=== PATIENT | female | born 1995 | race African-American/Black ===

== ENCOUNTER 2017-10-30 16:29 | Outpatient (CLI) | payer MEDICAID ==
[2017-10-30 17:52] VITALS: BP 118/59
[2017-10-30 18:39] LABS: ABSOLUTE EOSINOPHILS # (AUTO) 0.1 10^3/uL (0.0-0.6); ABSOLUTE LYMPHOCYTES (AUTO) 2.5 10^3/uL (0.5-4.7); ABSOLUTE MONOCYTES (AUTO) 1.2 10^3/uL (0.1-1.4); ABSOLUTE NEUT (AUTO) 8.2 10^3/uL (1.7-8.2); BASOPHILS % (AUTO) 0.3 % (0-2); HEMATOCRIT 28.1 % (36.0-47.0); HEMOGLOBIN 9.2 g/dL (12.0-15.5); LYMPHOCYTES % (AUTO) 20.9 % (13-45); MEAN CORPUSCULAR HEMOGLOBIN 27.7 pg (27.0-33.4); MEAN CORPUSCULAR HGB CONC 32.9 g/dL (32.0-36.0); MEAN CORPUSCULAR VOLUME 84 fl (80-97); MONOCYTES % (AUTO) 9.7 % (3-13); PLATELET COUNT 273 10^3/uL (150-450); RED BLOOD COUNT 3.34 10^6/uL (3.72-5.28); RED CELL DISTRIBUTION WIDTH 15.9 % (11.5-14.0); SEGMENTED NEUTROPHILS % (AUTO) 68.1 % (42-78); TOTAL CELLS COUNTED % (AUTO) 100 %; WHITE BLOOD COUNT 12.1 10^3/uL (4.0-10.5)
[2017-10-30 19:30] LABS: RUBELLA INTERPRETATION POSITIVE
--- NOTE | 2017-10-30 20:08 | RADIOLOGY REPORT (SQ) ---
EXAM DESCRIPTION: U/S OB LIMITED COMPLETED DATE/TIME: 10/30/2017 7:57 pm REASON FOR STUDY: need EGA, presentation, ISSA/SDP, unknown ega COMPARISON: None. TECHNIQUE: Limited transabdominal grayscale ultrasound for evaluation of specific requested obstetri terry parameters. LIMITATIONS: None. FINDINGS: ISSA: 10.6 cm. FHR: 139 beats per minute. PRESENTATION: Cephalic. OTHER: ESTIMATE GESTATIONAL AGE OF 33 WEEKS 0 DAYS WITH MAGI OF 12/18/2017. IMPRESSION: LIMITED OBSTETRICAL ULTRASOUND WITH MEASURED PARAMETERS DELINEATED ABOVE. Trimester of : Third trimester - 28 weeks to delivery. TECHNICAL DOCUMENTATION: JOB ID: [id number] [employer]- All Rights Reserved
[2017-10-30 20:21] LABS: CHLAM PCR DETECTED (NOT DETECT); GON PCR NOT DETECTED (NOT DETECT)
[2017-10-30 21:13] LABS: APPEARANCE,URINE CLEAR; BILIRUBIN,URINE NEGATIVE (NEGATIVE); COLOR,URINE YELLOW; GLUCOSE, URINE NEGATIVE (NEGATIVE); KETONES,URINE NEGATIVE (NEGATIVE); LEUKOCYTE ESTERASE,URINE TRACE (NEGATIVE); NITRITE,URINE NEGATIVE (NEGATIVE); PROTEIN,URINE NEGATIVE (NEGATIVE); URINE SPECIFIC GRAVITY 1.008; UROBILINOGEN,URINE NEGATIVE mg/dL (<2.0)
[2017-10-30 21:28] LABS: URINE AMPHETAMINES SCREEN NEGATIVE; URINE BARBITURATES SCREEN NEGATIVE; URINE BENZODIAZEPINES SCREEN NEGATIVE; URINE COCAINE SCREEN NEGATIVE; URINE METHADONE SCREEN NEGATIVE; URINE PHENCYCLIDINE SCREEN NEGATIVE
[2017-10-30] MEDS ORDERED: AZITHROMYCIN 1 GM SUSP PACKET PO ONE (21:30)
[2017-10-30] MEDS ORDERED: METRONIDAZOLE 500 MG TABLET PO ONE (21:30)
[2017-10-30 21:31] LABS: URINE MARIJUANA (THC) SCREEN UNCONFIRMED POSITIVE
[2017-11-01 08:40] LABS: HEPATITIS C VIRUS AB <0.1 s/co ratio (0.0-0.9)
[2017-11-01 10:32] LABS: HEPATITS B SURFACE ANTIGEN Negative (Negative)
== END 2017-10-30 21:37 | disposition home or self-care (01) ==
LOC: EDSTATUS 17:40 → LC 18:21
PROVIDERS: ATTEND Student in an Organized Health Care Education/Training Program
PROC: 4A1HXCZ Monitoring of Products of Conception, Cardiac Rate, External Approach (ICD-10-PCS; principal; 2017-10-30)
DX: O47.03 False labor before 37 completed weeks of gestation, third trimester (principal); O26.893 Other specified pregnancy related conditions, third trimester; R10.2 Pelvic and perineal pain; Z3A.33 33 weeks gestation of pregnancy
CPT/HCPCS: 59025; 86900; 86901; 36415; 86850; 85025; 81025; 87077; 86762; 86592; 81001; 87081; 87340; 86701; 80307; 87491; 87591; 86803; 86804; 76815; G0480 ×2; Q0144; J3490

== ENCOUNTER 2017-11-26 12:26 | Outpatient (CLI) | payer MEDICAID ==
--- NOTE | 2017-11-26 12:41 | Non Stress Test Report ---
Non Stress Test Datetime Report Generated by CPN: 11/26/2017 12:41 DEMOGRAPHIC Test Number: 1 EGA NST: 33.6 INDICATION Indication for Study: Ordered by Provider MONITORING Time on Monitor: 10/30/2017 18:23 Time off Monitor: 10/30/2017 19:03 NST Duration: 40 NST INTERVENTIONS NST Interventions: PO Hydration; Reposition Patient Physician Notified NST: Dr Cuadra BABY A: [id number] BABY A Movement : Present Contraction Frequency : x1 with irritability FHR Baseline : 135 Accelerations : 15X15 Decelerations : None Variability : Moderate 6-25bpm NST Review: Meets Criteria for Reactive NST NST Review and Verified By : Cinda Cantrell RN NST Results: Reactive NST REPORT Report Trigger: Send Report
[2017-11-26 13:24] LABS: APPEARANCE,URINE CLOUDY; BILIRUBIN,URINE NEGATIVE (NEGATIVE); COLOR,URINE YELLOW; GLUCOSE, URINE NEGATIVE (NEGATIVE); KETONES,URINE NEGATIVE (NEGATIVE); LEUKOCYTE ESTERASE,URINE MODERATE (NEGATIVE); NITRITE,URINE NEGATIVE (NEGATIVE); PROTEIN,URINE 100 mg/dL (NEGATIVE); URINE SPECIFIC GRAVITY 1.014
[2017-11-26 13:40] LABS: URINE AMPHETAMINES SCREEN NEGATIVE; URINE BARBITURATES SCREEN NEGATIVE; URINE BENZODIAZEPINES SCREEN NEGATIVE; URINE METHADONE SCREEN NEGATIVE; URINE PHENCYCLIDINE SCREEN NEGATIVE
[2017-11-26 13:45] LABS: URINE COCAINE SCREEN UNCONFIRMED POSITIVE; URINE MARIJUANA (THC) SCREEN UNCONFIRMED POSITIVE
--- NOTE | 2017-11-26 14:04 | Non Stress Test Report ---
Non Stress Test Datetime Report Generated by CPN: 11/26/2017 14:03 DEMOGRAPHIC Test Number: 2 EGA NST: 37.5 INDICATION Indication for Study: Other MONITORING Monitor Explained: Monitor Explained; Test Explained; Patient Verbalized Understanding Time on Monitor: 11/26/2017 12:44 Time off Monitor: 11/26/2017 13:13 NST Duration: 29 NST INTERVENTIONS NST Interventions: None Physician Notified NST: H. Reggie CNM BABY A Movement : Present Contraction Frequency : Occ FHR Baseline : 140 Accelerations : 15X15 Decelerations : None Variability : Moderate 6-25bpm NST Review: Meets Criteria for Reactive NST NST Review and Verified By : Tawny March RN NST Results: Reactive NST REPORT Report Trigger: Send Report
== END 2017-11-26 13:47 | disposition home or self-care (01) ==
LOC: LC 12:26
PROVIDERS: ATTEND Obstetrics & Gynecology
PROC: 4A1HXCZ Monitoring of Products of Conception, Cardiac Rate, External Approach (ICD-10-PCS; principal; 2017-11-26)
DX: K52.9 Noninfective gastroenteritis and colitis, unspecified (principal); O99.613 Diseases of the digestive system complicating pregnancy, third trimester; Z3A.37 37 weeks gestation of pregnancy
CPT/HCPCS: 59025; 81005; 80307; 80353; G0480; 36415

== ENCOUNTER 2017-12-07 08:20 | Outpatient (CLI) | payer MEDICAID ==
[2017-12-07 08:59] LABS: APPEARANCE,URINE CLOUDY; BILIRUBIN,URINE NEGATIVE (NEGATIVE); COLOR,URINE YELLOW; GLUCOSE, URINE NEGATIVE (NEGATIVE); KETONES,URINE NEGATIVE (NEGATIVE); LEUKOCYTE ESTERASE,URINE LARGE (NEGATIVE); NITRITE,URINE NEGATIVE (NEGATIVE); PROTEIN,URINE 30 mg/dL (NEGATIVE); UROBILINOGEN,URINE NEGATIVE mg/dL (<2.0)
[2017-12-07 09:17] LABS: URINE AMPHETAMINES SCREEN NEGATIVE; URINE BARBITURATES SCREEN NEGATIVE; URINE BENZODIAZEPINES SCREEN NEGATIVE; URINE COCAINE SCREEN NEGATIVE; URINE MARIJUANA (THC) SCREEN NEGATIVE; URINE METHADONE SCREEN NEGATIVE; URINE PHENCYCLIDINE SCREEN NEGATIVE
--- NOTE | 2017-12-07 09:25 | Non Stress Test Report ---
Non Stress Test Datetime Report Generated by CPN: 12/07/2017 09:25 DEMOGRAPHIC EGA NST: 39.2 INDICATION Indication for Study: Ordered by Provider MONITORING Monitor Explained: Monitor Explained; Test Explained; Patient Verbalized Understanding Time on Monitor: 12/07/2017 08:36 Time off Monitor: 12/07/2017 09:24 NST Duration: 48 NST INTERVENTIONS NST Interventions: None Physician Notified NST: Dr Cuadra BABY A: [id number] BABY A Movement : Present Contraction Frequency : irregular FHR Baseline : 135 Accelerations : 15X15 Decelerations : None Variability : Moderate 6-25bpm NST Review: Meets Criteria for Reactive NST NST Review and Verified By : Camelia Michael RN NST Results: Reactive NST REPORT Report Trigger: Send Report
== END 2017-12-07 09:35 | disposition home or self-care (01) ==
LOC: LC 08:20
PROVIDERS: ATTEND Student in an Organized Health Care Education/Training Program
PROC: 4A1HXCZ Monitoring of Products of Conception, Cardiac Rate, External Approach (ICD-10-PCS; principal; 2017-12-07)
DX: O47.1 False labor at or after 37 completed weeks of gestation (principal); Z3A.39 39 weeks gestation of pregnancy
CPT/HCPCS: 59025; 80307; 81005

== ENCOUNTER 2017-12-18 05:51 | Inpatient (IN) | payer MEDICAID ==
[2017-12-18] MEDS ORDERED: RINGERS SOLUTION,LACTATED 1,000 ML IV PRN (06:09)
[2017-12-18] MEDS ORDERED: PENICILLIN G POTASSIUM 5,000,000 UNIT in DEXTROSE 5%-WATER 100 ML IV ONE (06:09)
[2017-12-18] MEDS ORDERED: RINGERS SOLUTION,LACTATED 300 ML IV ONE (06:09)
[2017-12-18] MEDS ORDERED: OXYTOCIN/NORMAL SALINE 20 UNIT/1,000 ML RTUINJ IV PRN (06:09)
[2017-12-18] MEDS ORDERED: PENICILLIN G-K 5 MILLION UNIT VIAL ONE ×2 (06:36→11:35)
[2017-12-18] MEDS ORDERED: OXYTOCIN/NORMAL SALINE 0 UNIT/0 ML RTUINJ ONE (06:36)
[2017-12-18 06:37] LABS: APPEARANCE,URINE CLEAR; BILIRUBIN,URINE NEGATIVE (NEGATIVE); COLOR,URINE STRAW; GLUCOSE, URINE NEGATIVE (NEGATIVE); KETONES,URINE NEGATIVE (NEGATIVE); URINE SPECIFIC GRAVITY 1.009
[2017-12-18 06:38] LABS: LEUKOCYTE ESTERASE,URINE LARGE (NEGATIVE); NITRITE,URINE NEGATIVE (NEGATIVE); PROTEIN,URINE 30 mg/dL (NEGATIVE); UROBILINOGEN,URINE NEGATIVE mg/dL (<2.0)
[2017-12-18 06:44] LABS: ABSOLUTE BASOPHILS # (AUTO) 0.1 10^3/uL (0.0-0.2); ABSOLUTE EOSINOPHILS # (AUTO) 0.1 10^3/uL (0.0-0.6); ABSOLUTE LYMPHOCYTES (AUTO) 2.8 10^3/uL (0.5-4.7); ABSOLUTE NEUT (AUTO) 5.1 10^3/uL (1.7-8.2); BASOPHILS % (AUTO) 0.6 % (0-2); HEMATOCRIT 23.8 % (36.0-47.0); LYMPHOCYTES % (AUTO) 31.4 % (13-45); MEAN CORPUSCULAR HEMOGLOBIN 25.5 pg (27.0-33.4); MEAN CORPUSCULAR HGB CONC 33.1 g/dL (32.0-36.0); MEAN CORPUSCULAR VOLUME 77 fl (80-97); MONOCYTES % (AUTO) 10.9 % (3-13); PLATELET COUNT 264 10^3/uL (150-450); RED BLOOD COUNT 3.09 10^6/uL (3.72-5.28); RED CELL DISTRIBUTION WIDTH 17.2 % (11.5-14.0); SEGMENTED NEUTROPHILS % (AUTO) 56.1 % (42-78); TOTAL CELLS COUNTED % (AUTO) 100 %
[2017-12-18 06:50] LABS: HEMOGLOBIN 7.9 g/dL (12.0-15.5)
[2017-12-18 07:06] LABS: URINE AMPHETAMINES SCREEN NEGATIVE; URINE BARBITURATES SCREEN NEGATIVE; URINE BENZODIAZEPINES SCREEN NEGATIVE; URINE COCAINE SCREEN NEGATIVE; URINE MARIJUANA (THC) SCREEN NEGATIVE; URINE METHADONE SCREEN NEGATIVE; URINE PHENCYCLIDINE SCREEN NEGATIVE
--- NOTE | 2017-12-18 08:49 | Admission Physical ---
Datetime Report Generated by CPN: 12/18/2017 08:49 CURRENT ADMISSION Hx Assessment: The History has been Reviewed and is Current Chief Complaint: Scheduled Induction of Labor Indication for Induction: Post Dates Admit Impression : Term, Intrauterine ; No Active Labor; Intact Membranes Admit Plan: Admit to Unit; Initiate Labor Induction Protocol ALLERGIES Medication Allergies: Yes Medication Allergies: codeine/MO/Generalized kenji (12/18/2017) Latex: No Latex Allergies Food Allergies: none Environmental Allergies: none OBSTETRICAL HISTORY EDC: 12/12/2017 00:00 : 2 Para: 1 Term: 1 : 0 SAB: 0 IAB: 0 Ectopic: 0 Livin Cesareans: 0 VBACs: 0 Multiple Births: 0 Gestational Diabetes: No Rh Sensitization: No Incompetent Cervix: No ADOLFO: No Infertility: No ART Treatment: No Uterine Anomaly: No IUGR: Yes Hx Previous C/S: No Macrosomia: No Hx Loss/Stillborn: No PIH: No Hx : No Placenta Previa/Abruption: No Depression/PP Depression: No PTL/PROM: No Post Hemorrhage: No Current Procedures: Ultrasound Obstetrical History Comments: G1: 40.3 , IUGR G2: Current, ? frontal bossing "lemon shaped" head noted on ultrasound patient did not see MFM, positive cocaine and thc this , IOL SEE RECORDS Alcohol: No Marijuana : Yes Marijuana Comments: Positive UDS on 11/26/17 Cocaine: Yes Cocaine Comments: Positive UDS on 11/26/17, confirmation requested Other Illicit Drugs: No Cigarettes: Former Smoker. [id number] MEDICAL HISTORY Diabetes: No Blood Transfusion: No Pulmonary Disease (Asthma, TB): Yes Breast Disease: No Hypertension: No Form Maker Plaster Surgery: No Heart Disease: No Hosp/Surgery: Yes Autoimmune Disorder: No Anesthetic Complications: No Kidney Disease: Yes Abnormal Pap Smear: No Neuro/Epilepsy: No Psychiatric Disorders: No Other Medical Diseases: No Hepatitis/Liver Disease: No Significant Family History: No Varicosities/Phlebitis: No Trauma/Violence : No Thyroid Dysfunction: No Medical History Comments: x 1, kidney biopsy @ 16 or 17 pt states that she kept having excessive protien in urine. No problems since. 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 bronchitis x3 pt states that she has nebulizer at home but rarely uses it, positive drug screens for marijuana and cocaine INFECTIOUS HISTORY Gonorrhea: No Genital Herpes: No Chlamydia: Yes Tuberculosis: No Syphilis: No Hepatitis: No HIV/AIDS Exposure: No Rash or Viral Illness: No HPV: No Infectious History Comments: this PHYSICAL EXAM General: Normal HEENT: Normal Neurologic: Normal Thyroid: Deferred Heart: Normal Lungs: Normal Breast: Normal Back: Normal Abdomen: Normal Genitourinary Exam: Normal Extremities: Normal DTRs: Normal Pelvic Type: Adequate Vital Signs: Reviewed VAGINAL EXAM Dilatation: 2 Contraction Comments: rare MEMBRANES Membranes: Intact FETUS A EGA: 40.6 Monitoring: External US FHR- Baseline: 130 Variability: Moderate 6-25bpm Accelerations: 15X15 Decelerations: None FHR Category: Category I Estimated Weight (gm): 4100 Presentation: Vertex Admit Comment: IOL for postdates. Pt with hx of chronic proteinuria, iugr with G1, + cocaine @ [facility] on 11/26/17, ? frontal bossing saw mfm, + chlam @ [facility] 10/2017 GBS + pcn admit for labor induction, pitocin. May have epidural prn PLANS FOR LABOR AND DELIVERY Labor and Delivery: None Pain Management: Epidural Feeding Preference: Formula Benefit of Breast Feed Discussed: Yes Circumcision: N/A INFORMED CONSENT Assignment: Emilio Ugarte MD Signature: with User ID: Timur, Addendum/Amendment: dr. menezes is not listed on here : with User ID: Timur, Addendum/Amendment: dr. menezes is not listed on here
[2017-12-18] MEDS ORDERED: MISOPROSTOL 0.2 MG TABLET ONE (10:07)
[2017-12-18] MEDS ORDERED: OXYTOCIN/NORMAL SALINE 20 UNIT/1,000 ML RTUINJ ONE (10:07)
[2017-12-18] MEDS ORDERED: LIDOCAINE 1% INJ-PF (10 MG/ML) 30 ML SDV ONE (10:07)
[2017-12-18] MEDS ORDERED: PENICILLIN G POTASSIUM 2,500,000 UNIT in DEXTROSE 5%-WATER 50 ML IV SCH (10:11)
--- NOTE | 2017-12-18 10:50 | L&D Progress Notes ---
PROGRESS NOTES Datetime Report Generated by CPN: 12/18/2017 10:50 PROGRESS NOTE Impression: Normal Progression of Labor; Reassuring Heart Rate Procedures: Artificial ROM; Sterile Vag Exam Procedures- Other: clear Plan: Continue Present Management Plan Other: pt may have epidural Informed Consent Obtained: Vaginal Delivery Vital Signs : Reviewed Comment: coping now with ctx, but would like epidural AROM, clear Pit @ 18 mu #2 pcn due at 11 am may have epidural prn anticipate VAGINAL EXAM Dilatation: 3 Dilatation: 2 Effacement: 80 Station: -1 Contractions: 2-4.5 Contractions: rare MEMBRANES Membranes: Intact Amniotic Fluid Color: Clear FETUS A FHR - Baseline: 135 Variability: Moderate 6-25bpm Accelerations: 15X15 Decelerations: None FHR Category: Category I Estimated Weight (gm): 4100 Presentation: Vertex SIGNATURE SIGNATURE: 10,[id number];14,[id number];13,[id number] SIGNATURE: 13,[id number];14,[id number] SIGNATURE: 14,[id number] SIGNATURE: 14,[id number] SIGNATURE: 14,[id number] Assignment: Emilio Ugarte MD Signature: with User ID: Timur, Addendum/Amendment: dr. menezes : with User ID: Timur, Addendum/Amendment: dr. menezes
[2017-12-18] MEDS ORDERED: FENTANYL CITRATE INJ/PF 100 MCG/2 ML AMPUL ONE (10:56)
[2017-12-18] MEDS ORDERED: BUPIVACAINE HCL 0.25 % INJ/PF (2.5 MG/1 ML) 30 ML VIAL ONE (10:56)
[2017-12-18] MEDS ORDERED: PHENYLEPHRINE HCL INJ/PF 10 MG/1 ML SDV ONE (10:56)
[2017-12-18] MEDS ORDERED: FENTANYL/BUPIVACAINE/NS/PF 200 MCG/100 ML RTUINJ EPI ONE (10:56)
[2017-12-18] MEDS ORDERED: EPHEDRINE SULFATE INJ 50 MG/1 ML AMPULE ONE (10:56)
[2017-12-18] MEDS ORDERED: ACETAMINOPHEN WITH CODEINE #3 TABLET PO PRN ×2 (17:01)
[2017-12-18] MEDS ORDERED: DIPH/PERTUSS(ACELL)/TETANUS VAC/PF 0.5 ML SYR (>=10YO) IM PRN (17:01)
[2017-12-18] MEDS ORDERED: BENZOCAINE/MENTHOL AEROSOL SPRAY 56 ML TOP PRN (17:01)
[2017-12-18] MEDS ORDERED: DIBUCAINE 1% OINTMENT 28 GM TP PRN (17:01)
[2017-12-18] MEDS ORDERED: ZOLPIDEM TARTRATE 5 MG TABLET PO PRN (17:01)
[2017-12-18] MEDS ORDERED: MEASLES,MUMPS&RUBELLA VACC/PF 0.5 ML VIAL SUBCUT PRN (17:01)
--- NOTE | 2017-12-18 18:39 | Delivery Summary ---
Del Sum A-C Datetime Report Generated by CPN: 12/18/2017 18:39 DELIVERY PERSONNEL DELIVERY PERSONNEL: [id number] Delivery Doctor:: Dasha Paredes CNM Labor and Delivery Nurse:: Lamar Anderson RNagronomy research manager Nurse:: JUANA Davies Veneer Slicing Machine Operator:: Chas Delgadillo RN Nursery Nurse:: Linda Magana RN Fence Installer/FURNACE PACKER: Marily Garvin, ST MATERNAL INFORMATION Delivery Anesthesia: Epidural Medications After Delivery: Pitocin Bolus-Please Comment Meds After Delivery Comment: pitocin 20 units in 1 L NS bolusing per order Estimated Blood Loss (ml): 250 Maternal Complications: None Provider Comments: of viable female infant, head, shoulders, and body delivered without difficulty, with spontaneous cry and respirations, to maternal abdomen, cord clamped X2, and cut free, spontaneous delivery of intact placenta appears intact, 3 VC, vagina and perineum inspected, no lacerations noted, hemostasis acheived with external fundal massage and IV pitocin, mother and in stable condition, routine pp care. LABOR SUMMARY EDC: 12/12/2017 00:00 No. Babies in Womb: 1 Attempted: No Labor Anesthesia: Epidural LABOR INFORMATION Reason for Induction: Post Dates Complete Dilatation: 12/18/2017 16:36 Oxytocin: Induction Group B Beta Strep: 1 GROUP B BETA HEMOLYTIC STREPTOCOCCUS RECOVERED Antibiotics # of Doses: 2 Antibiotics Time of Last Dose: 1136 Name of Antibiotic Given: PCN Steroids Given: None Reason Steroids Not Administered: Not Applicable MEMBRANES Membranes Rupture Method: Artificial Rupture of Membranes: 12/18/2017 10:41 Length of Rupture (hr): 5.98 Amniotic Fluid Color: Clear Amniotic Fluid Amount: Small Amniotic Fluid Odor: Normal STAGES OF LABOR Stage 2 hr: 0 Stage 2 min: 4 Stage 3 hr: 0 Stage 3 min: 4 VAGINAL DELIVERY Episiotomy: None Laceration #1: None Laceration Extension #1: N/A Laceration #2: None Laceration #3: None Laceration Extension #3: N/A Laceration Repair: Not Applicable Sponge Count Correct: N/A Sharps Count Correct: N/A CSECTION DELIVERY Primary Indication: N/A Secondary Indication: N/A CSection Incidence: N/A Labor: N/A Elective: N/A CSection Incision: N/A BABY A INFORMATION Infant Delivery Date/Time: 12/18/2017 16:40 Method of Delivery: Vaginal Born in Route : No : N/A Forceps: N/A Vacuum Extraction: N/A Shoulder Dystocia : No PRESENTATION/POSITION BABY A Presentation: Cephalic Cephalic Presentation: Vertex Vertex Position: Right Occipital Anterior Breech Presentation: N/A PLACENTA INFORMATION BABY A Placenta Delivery Time : 12/18/2017 16:44 Placenta Method of Delivery: Spontaneous Placenta Status: Delivered SCORES BABY A Heart Rate 1 min: >100 bpm Resp Effort 1 min: Good Cry Reflex Irritability 1 min: Cough or Sneeze or Pulls Away Muscle Tone 1 min: Active Motion Color 1 min: Blue/Pale Resuscitation Effort 1 min: Tactile Stimulation SCORE 1 MIN: 8 Heart Rate 5 min: >100 bpm Resp Effort 5 min: Good Cry Reflex Irritability 5 min: Cough or Sneeze or Pulls Away Muscle Tone 5 min: Active Motion Color 5 min: Body [place], Extremities Blue Resuscitation Effort 5 min: N/A SCORE 5 MIN: 9 Resuscitation Effort 10 min: N/A INFANT INFORMATION BABY A Gestational Age at Delivery: 40.6 Gestational Status: Full Term- 39- 40.6 Weeks Infant Outcome : Liveborn Condition : Stable Infant Sex: Female IDENTIFICATION BABY A Infant Verification Date/Time: 12/18/2017 17:00 ID Band Number: [id number] Mother's Name Verified: Yes RN Verifying Infant: C. Coffey, RN R. Delgadillo, RN WEIGHT/LENGTH BABY A Birthweight (gm): 3915 Infant Weight (lb): 8 Infant Weight (oz): 10 Length (in): 21 1/4 CORD INFORMATION BABY A No. Cord Vessels: 3 Nuchal Cord : N/A Cord Blood Taken: Yes-For Eval (Mom's Blood Type - or O+) Suction: None ASSESSMENT BABY A Infant Complications: None Physical Findings at Delivery: Within Normal Limits Infant Respirations: Appears Normal Skin to Skin: Yes Skin to Skin Time (min): 10 [place] Man/ALS Called : No Care By: Tita Magana RN Transferred To: Remains with Mother BABY B INFORMATION : N/A SIGNATURES Assignment: Mary Cuadra MD Signature: with User ID: Timur, Addendum/Amendment: unable to have dr. menezes sign del. record. : with User ID: Timur, Addendum/Amendment: unable to have dr. clif sandoval del. record.
[2017-12-18] MEDS: FERROUS SULFATE 325 MG TABLET PO SCH (19:40)
[2017-12-18] MEDS: DOCUSATE SODIUM 100 MG CAPSULE PO SCH (19:40)
[2017-12-18] MEDS: IBUPROFEN 800 MG TABLET PO SCH (21:16)
[2017-12-19] MEDS ORDERED: ACETAMINOPHEN 325 MG TABLET ONE (02:36)
[2017-12-19] MEDS ORDERED: ACETAMINOPHEN 325 MG TABLET PO PRN (02:38)
[2017-12-19] MEDS: IBUPROFEN 800 MG TABLET PO SCH ×3 (06:31→21:15)
[2017-12-19 08:19] LABS: HEMATOCRIT 21.4 % (36.0-47.0); MEAN CORPUSCULAR HEMOGLOBIN 24.8 pg (27.0-33.4); MEAN CORPUSCULAR HGB CONC 32.2 g/dL (32.0-36.0); MEAN CORPUSCULAR VOLUME 77 fl (80-97); PLATELET COUNT 230 10^3/uL (150-450); RED BLOOD COUNT 2.78 10^6/uL (3.72-5.28); RED CELL DISTRIBUTION WIDTH 17.1 % (11.5-14.0); WHITE BLOOD COUNT 13.5 10^3/uL (4.0-10.5)
[2017-12-19 08:24] LABS: HEMOGLOBIN 6.9 g/dL (12.0-15.5)
[2017-12-19] MEDS: FERROUS SULFATE 325 MG TABLET PO SCH ×2 (10:02→17:53)
[2017-12-19] MEDS: PRENATAL VITAMIN W DHA CAPSULE PO SCH (10:02)
[2017-12-19] MEDS: DOCUSATE SODIUM 100 MG CAPSULE PO SCH ×2 (10:02→17:53)
[2017-12-19] MEDS: SENNOSIDES/DOCUSATE 8.6-50 MG 1 EACH TABLET PO SCH (10:02)
--- NOTE | 2017-12-19 13:05 | PDOC PROGRESS REPORT ---
Subjective-OB Progress Note for:: 12/19/17 Subjective: 22yo G2 now P2 s/p ppd 1. Ambulating and voiding without difficulty. Denies SOB/dizziness/lightheadedness or other concerns. Physical Exam (OB) Vital Signs: Temp Pulse Resp BP Pulse Ox 98.9 F 71 16 128/55 H 96 12/19/17 08:25 12/19/17 08:25 12/19/17 08:25 12/19/17 08:25 12/19/17 08:25 Intake & Output 12/18/17 12/19/17 12/20/17 06:59 06:59 06:59 Intake Total 300 Balance 300 Weight 91 kg - General General Appearance: Appears well In distress: None - PIH/Pre-Eclampsia DTR's: 2 + Clonus: Negative Headache: Absent Epigastric Pain: No Visual Changes: No - Episiotomy/Laceration Site Condition: N/A - Lochia Lochia Amount: Small 10-25 ml Lochia Color: Rubra/Red - Abdomen Description: Soft Hernia Present: No Fundal Description: Firm, Midline Fundal Height: u/u - u/2 - Respiratory Respiratory Status: No respiratory distress - Genitourinary Female External exam: Normal - Extremities Upper extremity: Normal inspection Lower extremities: Normal inspection Calf: Normal - Neurological Cognition: Normal Orientation: AAOx4 - Psychological Associated symptoms: Normal affect, Normal mood Objective-Diagnostic Laboratory: 12/19/17 07:46 12/19/17 07:46 WBC 13.5 H RBC 2.78 L Hgb 6.9 L Hct 21.4 L MCV 77 L MCH 24.8 L MCHC 32.2 RDW 17.1 H Plt Count 230 Assessment and Plan(PN) - Assessment and Plan (1) Vaginal delivery Is this a current diagnosis for this admission?: Yes Plan: routine pp care (2) Anemia affecting in third trimester Is this a current diagnosis for this admission?: Yes Plan: reviewed h/h with Dr. Birch, pt. asymptomatic, will continue to observe and repeat CBC in the AM. Increase iron in diet and feso4. (3) Drug use affecting Qualifiers: Trimester: unspecified trimester Qualified Code(s): O99.320 - Drug use complicating , unspecified trimester Is this a current diagnosis for this admission?: Yes Plan: discharge planning requested - Time Spent with Patient Time with patient: Less than 15 minutes Smoking Education Provided: Over 3 minutes Medications reviewed and adjusted accordingly: Yes - Disposition Anticipated Discharge: Home Within: within 24 hours
[2017-12-19] MEDS: OXYTOCIN/NORMAL SALINE 20 UNIT/1,000 ML RTUINJ IV PRN ×2 (19:15→19:16)
[2017-12-20] MEDS: IBUPROFEN 800 MG TABLET PO SCH (05:10)
[2017-12-20 07:39] LABS: MEAN CORPUSCULAR HEMOGLOBIN 25.6 pg (27.0-33.4); MEAN CORPUSCULAR HGB CONC 33.1 g/dL (32.0-36.0); MEAN CORPUSCULAR VOLUME 77 fl (80-97); PLATELET COUNT 221 10^3/uL (150-450); RED BLOOD COUNT 2.45 10^6/uL (3.72-5.28); RED CELL DISTRIBUTION WIDTH 17.4 % (11.5-14.0); WHITE BLOOD COUNT 10.8 10^3/uL (4.0-10.5)
[2017-12-20 07:46] LABS: HEMOGLOBIN 6.3 g/dL (12.0-15.5)
--- NOTE | 2017-12-20 10:44 | PDOC PROGRESS REPORT ---
Subjective-OB Progress Note for:: 12/20/17 Subjective: s/p vaginal delivery ff@u-1 mild lochia bottlefeeding pt denies s/s of anemia no dizziness,no headaches, no weakness reviewed hgb of 6.2- with instructions to follow up in 2 weeks increase iron in diet iron pills bid learning verbalized Physical Exam (OB) Vital Signs: Temp Pulse Resp BP Pulse Ox 98.2 F 68 15 125/61 99 12/20/17 08:23 12/20/17 08:23 12/20/17 08:23 12/20/17 08:23 12/20/17 08:23 Intake & Output 12/19/17 12/20/17 12/21/17 06:59 06:59 06:59 Intake Total 300 Balance 300 - PIH/Pre-Eclampsia DTR's: 2 + Clonus: Negative Headache: Absent Epigastric Pain: No Visual Changes: No - Lochia Lochia Amount: Scant < 10 ml Lochia Color: Rubra/Red - Abdomen Description: Tender, Firm Hernia Present: No Fundal Description: Firm Fundal Height: u/u - u/2 Objective-Diagnostic Laboratory: 12/20/17 07:03 12/20/17 07:03 WBC 10.8 H RBC 2.45 L Hgb 6.3 L Hct 19.0 L MCV 77 L MCH 25.6 L MCHC 33.1 RDW 17.4 H Plt Count 221 Assessment and Plan(PN) - Time Spent with Patient Smoking Education Provided: Over 3 minutes Medications reviewed and adjusted accordingly: Yes - Disposition Anticipated Discharge: Home
--- NOTE | 2017-12-20 10:47 | PDOC DISCHARGE SUMMARY ---
Final Diagnosis Discharge Date: 12/20/17 - Final Diagnosis (1) Anemia affecting in third trimester Is this a current diagnosis for this admission?: Yes (2) Vaginal delivery Is this a current diagnosis for this admission?: Yes Discharge Data - Discharge Medication Prescriptions: Ibuprofen [Motrin 800 mg Tablet] 800 mg PO Q8 #90 tablet Home Medications: Vit/Iron Fum/Folic AC [ Tablet] 1 tab PO DAILY 10/30/17 Ferrous Sulfate [Iron] 325 mg PO DAILY 11/26/17 Ibuprofen [Motrin 800 mg Tablet] 800 mg PO Q8 #90 tablet 12/20/17 Reason(s) for Admission: Induction of Labor Intrapartum Procedure(s): Spontaneous Vaginal Delivery - Diagnosis Test Laboratory: Temp Pulse Resp BP Pulse Ox 98.2 F 68 15 125/61 99 12/20/17 08:23 12/20/17 08:23 12/20/17 08:23 12/20/17 08:23 12/20/17 08:23 12/18/17 12/18/17 12/19/17 06:17 06:28 07:46 RBC 3.09 L 2.78 L Hgb 7.9 L 6.9 L Hct 23.8 L 21.4 L Urine Opiates Screen NEGATIVE 12/20/17 07:03 RBC 2.45 L Hgb 6.3 L Hct 19.0 L Urine Opiates Screen - Discharge information/Instructions Discharge Activity: Activity As Tolerated Discharge Diet: Regular Disposition: HOME, SELF-CARE Follow up with: [facility] in: 2 - follow up for anemia
[2017-12-20] MEDS: FERROUS SULFATE 325 MG TABLET PO SCH (11:11)
[2017-12-20] MEDS: DOCUSATE SODIUM 100 MG CAPSULE PO SCH (11:12)
[2017-12-20] MEDS: PRENATAL VITAMIN W DHA CAPSULE PO SCH (11:13)
[2017-12-20] MEDS: SENNOSIDES/DOCUSATE 8.6-50 MG 1 EACH TABLET PO SCH (11:13)
[2017-12-20 12:02] VITALS: BP 128/55
== END 2017-12-20 13:06 | disposition home or self-care (01) | DRG 775 ==
LOC: LR 05:51 → 2S 18:37
PROVIDERS: ADMIT Obstetrics & Gynecology Gynecology; ATTEND Obstetrics & Gynecology Gynecology
PROC: 10E0XZZ Delivery of Products of Conception, External Approach (ICD-10-PCS; principal; 2017-12-18)
PROC: 3E033VJ Introduction of Other Hormone into Peripheral Vein, Percutaneous Approach (ICD-10-PCS; 2017-12-18)
PROC: 10907ZC Drainage of Amniotic Fluid, Therapeutic from Products of Conception, Via Natural or Artificial Opening (ICD-10-PCS; 2017-12-18)
PROC: 4A1HXCZ Monitoring of Products of Conception, Cardiac Rate, External Approach (ICD-10-PCS; 2017-12-18)
DX: O48.0 Post-term pregnancy (principal); O99.324 Drug use complicating childbirth; O99.02 Anemia complicating childbirth; O36.5930 Maternal care for other known or suspected poor fetal growth, third trimester, not applicable or unspecified; D64.9 Anemia, unspecified; O99.52 Diseases of the respiratory system complicating childbirth; J45.909 Unspecified asthma, uncomplicated; O99.824 Streptococcus B carrier state complicating childbirth; Z28.21 Immunization not carried out because of patient refusal; Z88.6 Allergy status to analgesic agent; Z87.891 Personal history of nicotine dependence; Z3A.40 40 weeks gestation of pregnancy; Z37.0 Single live birth
CPT/HCPCS: 36415; 80307; 81005; 85025; 85027; 86592; 86850; 86900; 86901; 94760; J2370; J2540; J2590; J3010; J3490

== ENCOUNTER → 2018-05-10 | Outpatient (CLI) | payer MEDICAID ==
[2018-05-10 16:53] LABS: GON PCR NOT DETECTED (NOT DETECT)
[2018-05-10 16:58] LABS: CHLAM PCR NOT DETECTED (NOT DETECT)
== END ==
LOC: OD 14:39
PROVIDERS: ATTEND Nurse Practitioner Acute Care
DX: R30.0 Dysuria (principal)
CPT/HCPCS: 87086; 87088; 87186; 87491; 87591

== ENCOUNTER 2018-11-28 10:40 | Emergency (ER) | payer MEDICAID ==
[2018-11-28] MEDS ORDERED: ONDANSETRON HCL INJ/PF 4 MG/2 ML SDV IV ONE (11:04)
[2018-11-28] MEDS ORDERED: NORMAL SALINE 1000 ML 1,000 ML IV ONE ×2 (11:04)
--- NOTE | 2018-11-28 11:06 | ER Document Report ---
ED Medical Screen (RME) - General Chief Complaint: Vomiting/Diarrhea Stated Complaint: VOMITING, HEADACHE Primary Care Provider: TRAVIS SOLORIO NP [Primary Care Provider] - Follow up as needed TRAVEL OUTSIDE OF THE [place] IN LAST 30 DAYS: No - HPI Notes: 11/28/18 11:04 Patient complained of nausea vomiting for the past 2 days. She says she has not been able to keep anything down. Patient is 7 months . She was seen at the lab on the liver this morning where they did heart monitoring clear to be seen in the emergency room. Patient denies abdominal pain or cramping. He also denies any vaginal bleeding or fluid from the vagina. She did not also denies shortness of breath. - Related Data Allergies/Adverse Reactions: codeine Allergy (Intermediate, Verified 11/28/18 10:47) Generalized rash Past Medical History - Immunizations Hx Diphtheria, Pertussis, Tetanus Vaccination: Yes - 09/2013 History of Influenza Vaccine for 06/2017 - 11/2017 Season: Refused Physical Exam - Vital signs Vitals: Temp Pulse Resp BP Pulse Ox 98.8 F 115 H 16 97/57 L 98 11/28/18 11:02 11/28/18 11:02 11/28/18 11:02 11/28/18 11:02 11/28/18 11:02 Course - Vital Signs Vital signs: Temp Pulse Resp BP Pulse Ox 98.8 F 115 H 16 97/57 L 98 11/28/18 11:02 11/28/18 11:02 11/28/18 11:02 11/28/18 11:02 11/28/18 11:02 Doctor's Discharge - Discharge Referrals: TRAVIS SOLORIO NP [Primary Care Provider] - Follow up as needed
[2018-11-28 11:32] LABS: HEMATOCRIT 27.1 % (36.0-47.0); HEMOGLOBIN 9.2 g/dL (12.0-15.5); MEAN CORPUSCULAR HEMOGLOBIN 27.5 pg (27.0-33.4); MEAN CORPUSCULAR HGB CONC 34.1 g/dL (32.0-36.0); MEAN CORPUSCULAR VOLUME 81 fl (80-97); PLATELET COUNT 250 10^3/uL (150-450); RED BLOOD COUNT 3.35 10^6/uL (3.72-5.28)
[2018-11-28 11:42] LABS: ALANINE AMINOTRANSFERASE 23 U/L (9-52); ALBUMIN 3.5 g/dL (3.5-5.0); ALKALINE PHOSPHATASE 146 U/L (38-126); ANION GAP 10 (5-19); ASPARTATE AMINO TRANSFERASE 17 U/L (14-36); BILIRUBIN,DIRECT 0.4 mg/dL (0.0-0.4); BILIRUBIN,TOTAL 0.6 mg/dL (0.2-1.3); BLOOD UREA NITROGEN 13 mg/dL (7-20); CALCIUM 9.5 mg/dL (8.4-10.2); CARBON DIOXIDE 22 mmol/L (22-30); CHLORIDE 99 mmol/L (98-107); GLUCOSE 104 mg/dL (75-110); POTASSIUM 4.2 mmol/L (3.6-5.0); SODIUM 131.1 mmol/L (137-145)
--- NOTE | 2018-11-28 11:47 | ER Document Report ---
ED GI/ - General Chief Complaint: Vomiting/Diarrhea Stated Complaint: VOMITING, HEADACHE Time Seen by Provider: 11/28/18 11:29 Primary Care Provider: [facility] [Provider Group] - Follow up tomorrow Mode of Arrival: Ambulatory Information source: Patient Notes: Patient presents G3P to 7 months complaining of nausea and vomiting for the past 4 days. Patient does report sick contacts at home with vomiting symptoms. Patient denies any fever, urinary symptoms, abdominal or back pain. Patient denies any vaginal bleeding or discharge. Patient did initially present upstairs for labor check and was cleared and was sent down here for further evaluation of her symptoms. TRAVEL OUTSIDE OF THE [place] IN LAST 30 DAYS: No - HPI Patient complains to provider of: Vomiting. No: Abdominal pain, Diarrhea Onset: Other - 4 days Timing/Duration: Persistent Quality of pain: No pain Context: Vaginal bleeding (Compared to normal period): None Menstrual period history: Associated symptoms: Nausea, Vomiting. denies: Dizzy, Dysuria, Fever, Loss of appetite, Urinary hesitancy, Urinary frequency, Urinary retention, Urinary urgency, Vaginal discharge Exacerbated by: Denies Relieved by: Denies Similar symptoms previously: No Recently seen / treated by doctor: Yes - Related Data Allergies/Adverse Reactions: codeine Allergy (Intermediate, Verified 11/28/18 10:47) Generalized rash Past Medical History - General Information source: Patient - Social History Smoking Status: Never Smoker Frequency of alcohol use: None Drug Abuse: None Occupation: Foodservice Lives with: Family Family History: Reviewed & Not Pertinent Patient has suicidal ideation: No Patient has homicidal ideation: No - Medical History Medical History: Other - Anemia Renal/ Medical History: Denies: Hx Peritoneal Dialysis Surgical Hx: Negative - Immunizations Hx Diphtheria, Pertussis, Tetanus Vaccination: Yes - 09/2013 Review of Systems - Review of Systems Constitutional: No symptoms reported. denies: Fever, Recent illness EENT: No symptoms reported Cardiovascular: No symptoms reported. denies: Chest pain Respiratory: No symptoms reported. denies: Cough, Short of breath Gastrointestinal: Nausea, Vomiting, Poor fluid intake. denies: Abdominal pain, Diarrhea, Poor appetite Genitourinary: No symptoms reported. denies: Dysuria, Flank pain Female Genitourinary: . denies: Vaginal discharge, Vaginal bleeding Musculoskeletal: No symptoms reported. denies: Back pain Skin: No symptoms reported Hematologic/Lymphatic: No symptoms reported Neurological/Psychological: No symptoms reported. denies: Headaches Physical Exam - Vital signs Vitals: Temp Pulse BP Pulse Ox 98.8 F 122 H 93/35 L 100 11/28/18 11:01 11/28/18 11:01 11/28/18 11:01 11/28/18 11:01 - General General appearance: Appears well, Alert In distress: None - HEENT Head: Normocephalic Eyes: Normal Conjunctiva: Normal Nasal: Normal Mouth/Lips: Normal Mucous membranes: Dry Pharynx: Normal Neck: Normal, Supple. No: Lymphadenopathy, Meningismus - Respiratory Respiratory status: No respiratory distress Chest status: Nontender Breath sounds: Normal. No: Rales, Rhonchi, Stridor, Wheezing Chest palpation: Normal - Cardiovascular Rhythm: Tachycardia Heart sounds: S1 appreciated, S2 appreciated Murmur: No - Abdominal Inspection: Gravid female Distension: No distension Bowel sounds: Normal Tenderness: Nontender Organomegaly: No organomegaly - Back Back: Normal, Nontender. No: CVA tenderness - Extremities General upper extremity: Normal inspection, Nontender, Normal ROM General lower extremity: Normal inspection, Nontender, Normal ROM - Neurological Neuro grossly intact: Yes Cognition: Normal [place] Coma Scale Eye Opening: Spontaneous [place] Coma Scale Verbal: Oriented Joan Coma Scale Motor: Obeys Commands Joan Coma Scale Total: 15 - Psychological Associated symptoms: Normal affect, Normal mood - Skin Skin Temperature: Warm Skin Moisture: Dry Skin Color: Normal Course - Re-evaluation Re-evalutation: 11/28/18 12:[address] Ugarte regarding need for admission given patient's presentation with dehydration and acute kidney injury demonstrated by elevated creatinine clearance. Dr. Ugarte declines admission at this time states that the dehydration was corrected with IV fluids here in the ER and that he can follow her up in the office tomorrow to have her blood work rechecked. 11/28/18 12:[address] Ugarte to advise him of patient's UTI. Dr. Ugarte declines to admit pat ient at this time states that she can receive Rocephin IV and receive a prescription for Keflex and follow-up in the office. He states that patient has not had any care at the health department as they cannot find any of the records. 11/28/18 15:[address] Quintanilla again regarding patient status and current vital signs, recommends discharge with outpatient follow-up tomorrow morning as planned. Patient clinically looks well and reports feeling much better. Patient tolerating oral fluids without emesis. Patient advised of worsening symptoms that she should return immediately for. Patient encouraged to return for any fever, vomiting, belly or back pain. Patient advised that the OFFICE ENGINEER would like to see her tomorrow morning for further evaluation. Patient advised that if she cannot get in tomorrow for whatever reason to see the OFFICE ENGINEER that she should return to the emergency department for repeat evaluation. Patient encouraged to return at any point if her symptoms worsen. Patient encouraged to increase oral fluids and be sure to get her antibiotic filled right after leaving because she will need to take an additional times today as it is written for every 6 hours. Patient verbalized understanding of instructions and agrees with plan of care. 11/28/18 15:36 - Vital Signs Vital signs: Temp Pulse Resp BP Pulse Ox 98.0 F 118 H 16 128/56 H 100 11/28/18 14:58 11/28/18 14:58 11/28/18 14:58 11/28/18 14:58 11/28/18 14:58 - Laboratory Result Diagrams: 11/28/18 11:11 11/28/18 11:11 Laboratory results interpreted by me: 11/28/18 11/28/18 11/28/18 11:11 11:11 12:00 WBC 19.0 H RBC 3.35 L Hgb 9.2 L Hct 27.1 L RDW 16.0 H Seg Neuts % (Manual) 88 H Band Neutrophils % 1 L Lymphocytes % (Manual) 6 L Abs Neuts (Manual) 16.9 H Sodium 131.1 L Creatinine 2.44 H Est GFR ( Amer) 29 L Est GFR (Non-Af Amer) 24 L Alkaline Phosphatase 146 H Lipase 16.0 L Urine Protein 100 H Urine Blood LARGE H Urine Urobilinogen 2.0 H Ur Leukocyte Esterase LARGE H 11/28/18 12:57 Labs- Entire Visit 11/28/18 11/28/18 11/28/18 11:11 11:11 12:00 WBC 19.0 H RBC 3.35 L Hgb 9.2 L Hct 27.1 L MCV 81 MCH 27.5 MCHC 34.1 RDW 16.0 H Plt Count 250 Total Counted 100 Seg Neutrophils % Not Reportable Seg Neuts % (Manual) 88 H Band Neutrophils % 1 L Lymphocytes % Not Reportable Lymphocytes % (Manual) 6 L Monocytes % Not Reportable Monocytes % (Manual) 5 Eosinophils % Not Reportable Eosinophils % (Manual) 0 Basophils % Not Reportable Basophils % (Manual) 0 Absolute Neutrophils Not Reportable Abs Neuts (Manual) 16.9 H Absolute Lymphocytes Not Reportable Abs Lymphs (Manual) 1.1 Absolute Monocytes Not Reportable Abs Monocytes (Manual) 1.0 Absolute Eosinophils Not Reportable Absolute Eos (Manual) 0.0 Absolute Basophils Not Reportable Abs Basophils (Manual) 0.0 Nucleated RBCs 1 Platelet Comment ADEQUATE Polychromasia SLIGHT Poikilocytosis SLIGHT Anisocytosis 1+ Ovalocytes SLIGHT Sodium 131.1 L Potassium 4.2 Chloride 99 Carbon Dioxide 22 Anion Gap 10 BUN 13 Creatinine 2.44 H Est GFR ( Amer) 29 L Est GFR (Non-Af Amer) 24 L Glucose 104 Calcium 9.5 Total Bilirubin 0.6 Direct Bilirubin 0.4 Neonat Total Bilirubin Not Reportable Neonat Direct Bilirubin Not Reportable Neonat Indirect Bili Not Reportable AST 17 ALT 23 Alkaline Phosphatase 146 H Total Protein 7.0 Albumin 3.5 Lipase 16.0 L Urine Color AGGIE Urine Appearance TURBID Urine pH 5.0 Ur Specific [place] 1.011 Urine Protein 100 H Urine Glucose (UA) NEGATIVE Urine Ketones NEGATIVE Urine Blood LARGE H Urine Nitrite NEGATIVE Urine Bilirubin NEGATIVE Urine Urobilinogen 2.0 H Ur Leukocyte Esterase LARGE H Urine WBC (Auto) >182 Urine RBC (Auto) 30 Urine WBC Clumps MANY Squamous Epi Cells Auto 3 U Non-Squamous Epis Auto 3 Urine Mucus (Auto) RARE Urine Ascorbic Acid NEGATIVE 11/28/18 15:31 Labs- Entire Visit 11/28/18 11/28/18 11/28/18 11:11 11:11 12:00 WBC 19.0 H RBC 3.35 L Hgb 9.2 L Hct 27.1 L MCV 81 MCH 27.5 MCHC 34.1 RDW 16.0 H Plt Count 250 Total Counted 100 Seg Neutrophils % Not Reportable Seg Neuts % (Manual) 88 H Band Neutrophils % 1 L Lymphocytes % Not Reportable Lymphocytes % (Manual) 6 L Monocytes % Not Reportable Monocytes % (Manual) 5 Eosinophils % Not Reportable Eosinophils % (Manual) 0 Basophils % Not Reportable Basophils % (Manual) 0 Absolute Neutrophils Not Reportable Abs Neuts (Manual) 16.9 H Absolute Lymphocytes Not Reportable Abs Lymphs (Manual) 1.1 Absolute Monocytes Not Reportable Abs Monocytes (Manual) 1.0 Absolute Eosinophils Not Reportable Absolute Eos (Manual) 0.0 Absolute Basophils Not Reportable Abs Basophils (Manual) 0.0 Nucleated RBCs 1 Platelet Comment ADEQUATE Polychromasia SLIGHT Poikilocytosis SLIGHT Anisocytosis 1+ Ovalocytes SLIGHT Sodium 131.1 L Potassium 4.2 Chloride 99 Carbon Dioxide 22 Anion Gap 10 BUN 13 Creatinine 2.44 H Est GFR ( Amer) 29 L Est GFR (Non-Af Amer) 24 L Glucose 104 Calcium 9.5 Total Bilirubin 0.6 Direct Bilirubin 0.4 Neonat Total Bilirubin Not Reportable Neonat Direct Bilirubin Not Reportable Neonat Indirect Bili Not Reportable AST 17 ALT 23 Alkaline Phosphatase 146 H Total Protein 7.0 Albumin 3.5 Lipase 16.0 L Urine Color AGGIE Urine Appearance TURBID Urine pH 5.0 Ur Specific [place] 1.011 Urine Protein 100 H Urine Glucose (UA) NEGATIVE Urine Ketones NEGATIVE Urine Blood LARGE H Urine Nitrite NEGATIVE Urine Bilirubin NEGATIVE Urine Urobilinogen 2.0 H Ur Leukocyte Esterase LARGE H Urine WBC (Auto) >182 Urine RBC (Auto) 30 Urine WBC Clumps MANY Squamous Epi Cells Auto 3 U Non-Squamous Epis Auto 3 Urine Mucus (Auto) RARE Urine Ascorbic Acid NEGATIVE Discharge - Discharge Clinical Impression: Abnormal renal function test, Dehydration UTI (urinary tract infection) Qualifiers: Urinary tract infection type: site unspecified Hematuria presence: with hematuria Qualified Code(s): N39.0 - Urinary tract infection, site not specified Vomiting Qualifiers: Vomiting type: unspecified Vomiting Intractability: non-intractable Nausea presence: with nausea Qualified Code(s): R11.2 - Nausea with vomiting, unspecified Condition: Stable Disposition: HOME, SELF-CARE Instructions: Acetaminophen, Cephalexin ([facility]), Dehydration ([facility]), Intravenous (IV) Fluids ([facility]), Urinary Tract Infection ([facility]), Vomiting ([facility]) Additional Instructions: Return immediately for any new or worsening symptoms. Return for any abdominal pain, flank pain, vomiting, fever or any concerning symptoms Your renal function test was abnormal today. It is very important that you see the OFFICE ENGINEER provider tomorrow for repeat examination so they can repeat your blood test. Your renal function test will need to be repeated to be sure that your urine functioning has returned back to normal. If you are not able to see the OFFICE ENGINEER doctor tomorrow for any reason you should return to the emergency department for a recheck. Increase your oral fluids and stay well-hydrated Urine culture is pending, we will call if you need any different treatment Prescriptions: Cephalexin Monohydrate [Keflex 500 mg Capsule] 500 mg PO Q6H 7 Days capsule Forms: Return to Work Referrals: [facility] [Provider Group] - Follow up tomorrow
[2018-11-28 12:06] LABS: ABSOLUTE LYMPHOCYTES# (MANUAL) 1.1 10^3/uL (0.5-4.7); ABSOLUTE NEUTROPHILS# (MANUAL) 16.9 10^3/uL (1.7-8.2); BAND NEUTROPHILS % (MANUAL) 1 % (3-5); BASOPHILS % (MANUAL) 0 % (0-2); EOSINOPHILS % (MANUAL) 0 % (0-6); LYMPHOCYTES % (MANUAL) 6 % (13-45); MONOCYTES % (MANUAL) 5 % (3-13); NUCLEATED RED BLOOD CELLS 1 /100 WBC (0); SEGMENTED NEUTROPHILS % (MAN) 88 % (42-78); TOTAL CELLS COUNTED 100
[2018-11-28 12:07] LABS: ANISOCYTOSIS 1+; OVALOCYTES SLIGHT; PLATELET COMMENT ADEQUATE; POIKILOCYTOSIS SLIGHT; POLYCHROMASIA SLIGHT
[2018-11-28 12:24] LABS: APPEARANCE,URINE TURBID; BILIRUBIN,URINE NEGATIVE (NEGATIVE); COLOR,URINE AMBER; GLUCOSE, URINE NEGATIVE (NEGATIVE); KETONES,URINE NEGATIVE (NEGATIVE); LEUKOCYTE ESTERASE,URINE LARGE (NEGATIVE); NITRITE,URINE NEGATIVE (NEGATIVE); PROTEIN,URINE 100 mg/dL (NEGATIVE); URINE SPECIFIC GRAVITY 1.011
[2018-11-28] MEDS ORDERED: CEFTRIAXONE 1 GM/D5W RTU 1 GM/50 ML RTUPB IV ONE (12:32)
[2018-11-28] MEDS ORDERED: NORMAL SALINE 1000 ML 1,000 ML IV PRN (12:58)
[2018-11-28 15:00] VITALS: BP 128/56
== END 2018-11-28 16:06 | disposition home or self-care (01) ==
LOC: ER 10:40
DX: O23.40 Unspecified infection of urinary tract in pregnancy, unspecified trimester (principal); O26.839 Pregnancy related renal disease, unspecified trimester; N17.9 Acute kidney failure, unspecified; O21.9 Vomiting of pregnancy, unspecified; O99.280 Endocrine, nutritional and metabolic diseases complicating pregnancy, unspecified trimester; E86.0 Dehydration; O26.899 Other specified pregnancy related conditions, unspecified trimester; Z3A.00 Weeks of gestation of pregnancy not specified; Z88.5 Allergy status to narcotic agent
CPT/HCPCS: 99284; 96361; 96375; 96365; 36415; 87086; 83690; 85025; 87088; 80053; 81001; 87186; J2405; J7030; J0696

== ENCOUNTER → 2018-11-28 | Outpatient (CLI) | payer MEDICAID | LOC: LC 09:48 | PROVIDERS: ATTEND Obstetrics & Gynecology Gynecology | DX: Z53.9 Procedure and treatment not carried out, unspecified reason (principal) ==

== ENCOUNTER 2019-02-20 02:38 | Inpatient (IN) | payer MEDICAID ==
[2019-02-20] MEDS ORDERED: RINGERS SOLUTION,LACTATED 1,000 ML IV ONE (02:45)
[2019-02-20] MEDS ORDERED: PENICILLIN G POTASSIUM 5,000,000 UNIT in DEXTROSE 5%-WATER 100 ML IV ONE (02:45)
[2019-02-20] MEDS ORDERED: OXYTOCIN/NORMAL SALINE 20 UNIT/1,000 ML RTUINJ ONE ×2 (02:52→04:42)
[2019-02-20] MEDS ORDERED: MISOPROSTOL 0.2 MG TABLET ONE (02:52)
[2019-02-20] MEDS ORDERED: LIDOCAINE 1% INJ-PF (10 MG/ML) 30 ML SDV ONE (02:52)
[2019-02-20] MEDS ORDERED: OXYTOCIN 10 UNIT/ML VIAL ONE (02:52)
[2019-02-20] MEDS ORDERED: PENICILLIN G-K 5 MILLION UNIT VIAL ONE (02:53)
--- NOTE | 2019-02-20 03:26 | Admission Physical ---
Datetime Report Generated by CPN: 02/20/2019 03:26 CURRENT ADMISSION Chief Complaint: Uterine Contractions Indication for Induction: Not Applicable Admit Impression : Term, Intrauterine Admit Plan: Admit to Unit; Initiate Labor Protocol Admit Plan- Other: No care and no dating sono. MAGI is 02/15/2019 by patient's statement only. Had visit in ER and LC on 11/28/18 but NO sono was done to confirm EGA ALLERGIES Medication Allergies: codeine/MO/Generalized kenji (11/28/2018) OBSTETRICAL HISTORY EDC: 02/15/2019 00:00 : 4 Para: 2 Gestational Diabetes: Unknown Rh Sensitization: No Incompetent Cervix: No ADOLFO: No Infertility: No ART Treatment: No Uterine Anomaly: No IUGR: No Hx Previous C/S: No Macrosomia: No Hx Loss/Stillborn: No PIH: No Hx : No Placenta Previa/Abruption: No Depression/PP Depression: No PTL/PROM: No Post Hemorrhage: No Current Procedures: Ultrasound; NST Obstetrical History Comments: [id number] G2- SAB G3- 2017 healthy G4- current SEE RECORDS Cocaine: Yes MEDICAL HISTORY Diabetes: No Blood Transfusion: No Pulmonary Disease (Asthma, TB): No Breast Disease: No Hypertension: No Efficiency Engineer Surgery: No Heart Disease: No Hosp/Surgery: No Autoimmune Disorder: No Anesthetic Complications: No Kidney Disease: No Abnormal Pap Smear: No Neuro/Epilepsy: No Psychiatric Disorders: No Other Medical Diseases: No Significant Family History: No Varicosities/Phlebitis: No Trauma/Violence : No Thyroid Dysfunction: No INFECTIOUS HISTORY Gonorrhea: No Genital Herpes: No Chlamydia: No Syphilis: No HIV/AIDS Exposure: No HPV: No PHYSICAL EXAM General: Normal HEENT: Normal Neurologic: Normal Thyroid: Normal Heart: Normal Lungs: Normal Breast: Normal Back: Normal Abdomen: Normal Genitourinary Exam: Normal Extremities: Normal DTRs: Normal Pelvic Type: Adequate Vital Signs: Reviewed; Within Normal Limits VAGINAL EXAM Dilatation: 8 Effacement: 100 Station: 0 MEMBRANES Pooling: Negative Membranes: Intact FETUS A EGA: 40.5 Monitoring: External US FHR- Baseline: 120 Variability: Moderate 6-25bpm Accelerations: 15X15 Decelerations: None FHR Category: Category I Presentation: Vertex PLANS FOR LABOR AND DELIVERY Labor and Delivery: None Pain Management: Medications; Epidural Feeding Preference: Both Benefit of Breast Feed Discussed: Yes Circumcision: N/A INFORMED CONSENT Signature: with User ID: [email or web address]
[2019-02-20 03:41] LABS: HEMATOCRIT 25.3 % (36.0-47.0); HEMOGLOBIN 8.4 g/dL (12.0-15.5); MEAN CORPUSCULAR HEMOGLOBIN 25.5 pg (27.0-33.4); MEAN CORPUSCULAR HGB CONC 33.4 g/dL (32.0-36.0); MEAN CORPUSCULAR VOLUME 77 fl (80-97); PLATELET COUNT 284 10^3/uL (150-450); RED BLOOD COUNT 3.31 10^6/uL (3.72-5.28); RED CELL DISTRIBUTION WIDTH 19.1 % (11.5-14.0)
[2019-02-20 03:53] LABS: ALANINE AMINOTRANSFERASE 19 U/L (9-52); ALBUMIN 3.5 g/dL (3.5-5.0); ALKALINE PHOSPHATASE 307 U/L (38-126); ANION GAP 14 (5-19); ASPARTATE AMINO TRANSFERASE 23 U/L (14-36); BILIRUBIN,DIRECT 0.3 mg/dL (0.0-0.4); BILIRUBIN,TOTAL 0.4 mg/dL (0.2-1.3); BLOOD UREA NITROGEN 10 mg/dL (7-20); CALCIUM 9.6 mg/dL (8.4-10.2); CARBON DIOXIDE 19 mmol/L (22-30); CHLORIDE 104 mmol/L (98-107); GLUCOSE 124 mg/dL (75-110); POTASSIUM 3.9 mmol/L (3.6-5.0); SODIUM 136.7 mmol/L (137-145)
[2019-02-20 04:03] LABS: ABSOLUTE LYMPHOCYTES# (MANUAL) 0.8 10^3/uL (0.5-4.7); ABSOLUTE MONOCYTES # (MANUAL) 0.3 10^3/uL (0.1-1.4); BASOPHILS % (MANUAL) 0 % (0-2); EOSINOPHILS % (MANUAL) 0 % (0-6); LYMPHOCYTES % (MANUAL) 7 % (13-45); MONOCYTES % (MANUAL) 3 % (3-13); SEGMENTED NEUTROPHILS % (MAN) 90 % (42-78); TOTAL CELLS COUNTED 100
[2019-02-20 04:05] LABS: ANISOCYTOSIS 2+; HYPOCHROMASIA 1+; OVALOCYTES SLIGHT; PLATELET COMMENT ADEQUATE; POIKILOCYTOSIS 1+; SCHISTOCYTES SLIGHT; TEAR DROP CELLS SLIGHT
[2019-02-20] MEDS ORDERED: DIPHENHYDRAMINE HCL 25 MG CAPSULE PO PRN (04:07)
[2019-02-20] MEDS ORDERED: OXYTOCIN/NORMAL SALINE 20 UNIT/1,000 ML RTUINJ IV PRN (04:07)
[2019-02-20] MEDS ORDERED: NA PHOS,M-B/NA PHOS,DI-BA (ADULT) 133 ML ENEMA PR PRN (04:07)
[2019-02-20] MEDS ORDERED: PSEUDOEPHEDRINE HCL 30 MG TABLET PO PRN (04:07)
[2019-02-20] MEDS ORDERED: BENZOCAINE/MENTHOL AEROSOL SPRAY 56 ML TOP PRN (04:07)
[2019-02-20] MEDS ORDERED: DIPH/PERTUSS(ACELL)/TETANUS VAC/PF 0.5 ML SYR (>=10YO) IM PRN (04:07)
[2019-02-20] MEDS ORDERED: MAGNESIUM HYDROXIDE SUSP 30 ML UDCUP PO PRN (04:07)
[2019-02-20] MEDS ORDERED: DIBUCAINE 1% OINTMENT 56 GM TP PRN (04:07)
[2019-02-20] MEDS ORDERED: PROMETHAZINE HCL INJ 25 MG/1 ML VIAL IV PRN (04:07)
[2019-02-20] MEDS ORDERED: PROMETHAZINE HCL 25 MG SUPP.RECT PR PRN (04:07)
[2019-02-20] MEDS ORDERED: PROMETHAZINE HCL 25 MG TABLET PO PRN (04:07)
[2019-02-20] MEDS ORDERED: ACETAMINOPHEN WITH CODEINE #3 TABLET PO PRN ×2 (04:07)
[2019-02-20] MEDS ORDERED: ACETAMINOPHEN 650 MG SUPP.RECT PR PRN (04:07)
[2019-02-20] MEDS ORDERED: ZOLPIDEM TARTRATE 5 MG TABLET PO PRN (04:07)
[2019-02-20] MEDS ORDERED: GLYCERIN/WITCH HAZEL LEAF 1 EACH MED..WIPE TP PRN (04:07)
[2019-02-20] MEDS ORDERED: MEASLES,MUMPS&RUBELLA VACC/PF 0.5 ML VIAL SUBCUT PRN (04:07)
[2019-02-20 04:29] LABS: RUBELLA INTERPRETATION POSITIVE
[2019-02-20] MEDS ORDERED: IBUPROFEN 800 MG TABLET ONE (04:55)
[2019-02-20 05:51] LABS: APPEARANCE,URINE CLEAR; BILIRUBIN,URINE NEGATIVE (NEGATIVE); COLOR,URINE YELLOW; GLUCOSE, URINE NEGATIVE (NEGATIVE); KETONES,URINE NEGATIVE (NEGATIVE); LEUKOCYTE ESTERASE,URINE NEGATIVE (NEGATIVE); NITRITE,URINE NEGATIVE (NEGATIVE); PROTEIN,URINE 100 mg/dL (NEGATIVE); URINE SPECIFIC GRAVITY 1.012; UROBILINOGEN,URINE NEGATIVE mg/dL (<2.0)
[2019-02-20 06:12] LABS: URINE AMPHETAMINES SCREEN NEGATIVE; URINE BARBITURATES SCREEN NEGATIVE; URINE BENZODIAZEPINES SCREEN NEGATIVE; URINE COCAINE SCREEN NEGATIVE; URINE MARIJUANA (THC) SCREEN NEGATIVE; URINE METHADONE SCREEN NEGATIVE; URINE PHENCYCLIDINE SCREEN NEGATIVE
[2019-02-20] MEDS ORDERED: PENICILLIN G POTASSIUM 2,500,000 UNIT in DEXTROSE 5%-WATER 50 ML IV SCH (06:49)
--- NOTE | 2019-02-20 07:21 | Warning Signs in Babies ---
VOD Warning Signs Datetime Report Generated by Julia: 02/20/2019 07:21 VOD#[id number] -Warning Signs in Babies: Needs to be viewed. (02/20/2019 07:05:Abdiaziz Davalos RN)
[2019-02-20] MEDS ORDERED: ACETAMINOPHEN WITH CODEINE #3 TABLET ONE (07:31)
--- NOTE | 2019-02-20 08:26 | Delivery Summary ---
Del Sum A-C Datetime Report Generated by CPN: 02/20/2019 08:25 DELIVERY PERSONNEL DELIVERY PERSONNEL: [id number] Delivery Doctor:: Mary Ann Birch MD Labor and Delivery Nurse:: Fatoumata Barraza RNconsumer insight manager Nurse:: Poornima Roach RN Supervisor Webbing/EMAIL PRODUCTION SPECIALIST: Tabitha Iglesias, ST MATERNAL INFORMATION Delivery Anesthesia: None Medications After Delivery: Pitocin Drip 20 Units/1000ml NSS Estimated Blood Loss (ml): 200 Maternal Complications: None; Precipitous Labor (<3hrs); Other Complication Details: No care LABOR SUMMARY EDC: 02/15/2019 00:00 No. Babies in Womb: 1 Attempted: No Labor Anesthesia: None LABOR INFORMATION Reason for Induction: Not Applicable Onset of Labor: 02/20/2019 02:42 Complete Dilatation: 02/20/2019 03:44 Oxytocin: N/A Group B Beta Strep: Unknown Antibiotics # of Doses: 1 Antibiotics Time of Last Dose: 0319 Name of Antibiotic Given: PCN Steroids Given: None Reason Steroids Not Administered: Not Applicable MEMBRANES Membranes Rupture Method: Artificial Rupture of Membranes: 02/20/2019 03:34 Length of Rupture (hr): 0.38 Amniotic Fluid Color: Clear Amniotic Fluid Amount: Small Amniotic Fluid Odor: Normal STAGES OF LABOR Stage 1 hr: 1 Stage 1 min: 2 Stage 2 hr: 0 Stage 2 min: 13 Stage 3 hr: 0 Stage 3 min: 3 Total Time in Labor hr: 1 Total Time in Labor min: 18 VAGINAL DELIVERY Episiotomy: None Laceration #1: None Laceration Extension #1: N/A Laceration Repair: Not Applicable CSECTION DELIVERY Primary Indication: N/A Secondary Indication: N/A CSection Incidence: N/A Labor: N/A Elective: N/A CSection Incision: N/A BABY A INFORMATION Delivery Date/Time: 02/20/2019 03:57 Method of Delivery: Vaginal Born in Route : No : N/A Forceps: N/A Vacuum Extraction: N/A Shoulder Dystocia : No PRESENTATION/POSITION BABY A Presentation: Cephalic Cephalic Presentation: Vertex Vertex Position: Right Occipital Anterior Breech Presentation: N/A PLACENTA INFORMATION BABY A Placenta Delivery Time : 02/20/2019 04:00 Placenta Method of Delivery: Spontaneous Placenta Status: Delivered SCORES BABY A Heart Rate 1 min: >100 bpm Resp Effort 1 min: Good Cry Reflex Irritability 1 min: [place]im[place] Muscle Tone 1 min: Some Flexion of Extremities Color 1 min: Body [place], Extremities Blue SCORE 1 MIN: 7 Heart Rate 5 min: >100 bpm Resp Effort 5 min: Good Cry Reflex Irritability 5 min: [place]imace Muscle Tone 5 min: Some Flexion of Extremities Color 5 min: Body [place], Extremities Blue SCORE 5 MIN: 7 INFORMATION BABY A Infant Outcome : Liveborn Infant Sex: Male IDENTIFICATION BABY A Verification Date/Time: 02/20/2019 04:10 ID Band Number: [id number] Mother's Name Verified: Yes RN Verifying : Gloria, RN Additional Verifying Personnel: Channing, RN WEIGHT/LENGTH BABY A Birthweight (gm): 3860 Infant Weight (lb): 8 Infant Weight (oz): 8 CORD INFORMATION BABY A No. Cord Vessels: 3 Nuchal Cord : N/A Cord Blood Taken: Yes-For Eval (Mom's Blood Type - or O+) ASSESSMENT BABY A Skin to Skin: No BABY B INFORMATION : N/A SIGNATURES Signature: with User ID: [email or web address]
[2019-02-20] MEDS: IBUPROFEN 800 MG TABLET PO SCH ×3 (08:48→22:16)
[2019-02-20] MEDS: PRENATAL VITAMIN W DHA CAPSULE PO SCH (10:11)
[2019-02-20] MEDS: FERROUS SULFATE 325 MG TABLET PO SCH ×2 (10:11→17:07)
[2019-02-20] MEDS: FAMOTIDINE 20 MG TABLET PO SCH ×2 (10:11→22:16)
[2019-02-20] MEDS: SENNOSIDES/DOCUSATE 8.6-50 MG 1 EACH TABLET PO SCH (10:11)
[2019-02-20] MEDS: DOCUSATE SODIUM 100 MG CAPSULE PO SCH ×2 (10:11→17:07)
[2019-02-21] MEDS: IBUPROFEN 800 MG TABLET PO SCH ×2 (05:12→13:25)
[2019-02-21 07:43] LABS: HEPATITS B SURFACE ANTIGEN Negative (Negative)
[2019-02-21 08:22] VITALS: BP 114/60
[2019-02-21 08:42] LABS: HEPATITIS C VIRUS AB <0.1 s/co ratio (0.0-0.9)
[2019-02-21] MEDS: PRENATAL VITAMIN W DHA CAPSULE PO SCH (09:40)
[2019-02-21] MEDS: DOCUSATE SODIUM 100 MG CAPSULE PO SCH (09:40)
[2019-02-21] MEDS: FAMOTIDINE 20 MG TABLET PO SCH (09:40)
[2019-02-21] MEDS: FERROUS SULFATE 325 MG TABLET PO SCH (09:40)
[2019-02-21] MEDS: SENNOSIDES/DOCUSATE 8.6-50 MG 1 EACH TABLET PO SCH (09:41)
--- NOTE | 2019-02-21 10:50 | PDOC PROGRESS REPORT ---
Subjective-OB Progress Note for:: 02/21/19 Subjective: Requesting early discharge to visit baby in [place]. Physical Exam (OB) Vital Signs: Temp Pulse Resp BP Pulse Ox 97.7 F 73 15 114/60 100 02/21/19 10:16 02/21/19 10:16 02/21/19 10:16 02/21/19 10:16 02/21/19 10:16 Intake & Output 02/20/19 02/21/19 02/22/19 06:59 06:59 06:59 Intake Total 350 Balance 350 Weight 90.718 kg - PIH/Pre-Eclampsia DTR's: 2 + Clonus: Negative Headache: Absent Epigastric Pain: No Visual Changes: No - Lochia Lochia Amount: Small 10-25 ml Lochia Color: Rubra/Red - Abdomen Description: Soft Hernia Present: No Bowel Sounds: Normoactive Flatus Presence: Present Stool: No Fundal Description: Firm, Midline Fundal Height: u/u - u/2 Objective-Diagnostic Laboratory: 02/20/19 03:20 02/20/19 03:20
[2019-02-21 11:51] LABS: HEMATOCRIT 20.9 % (36.0-47.0); MEAN CORPUSCULAR HEMOGLOBIN 24.8 pg (27.0-33.4); MEAN CORPUSCULAR HGB CONC 32.5 g/dL (32.0-36.0); MEAN CORPUSCULAR VOLUME 76 fl (80-97); PLATELET COUNT 291 10^3/uL (150-450); RED BLOOD COUNT 2.74 10^6/uL (3.72-5.28); WHITE BLOOD COUNT 11.4 10^3/uL (4.0-10.5)
[2019-02-21 11:54] LABS: HEMOGLOBIN 6.8 g/dL (12.0-15.5)
--- NOTE | 2019-03-14 15:13 | PDOC DISCHARGE SUMMARY ---
Final Diagnosis Discharge Date: 03/14/19 - Final Diagnosis (1) History of drug use Is this a current diagnosis for this admission?: Yes (2) No care in current Is this a current diagnosis for this admission?: Yes (3) Delivery normal Is this a current diagnosis for this admission?: Yes (4) Is this a current diagnosis for this admission?: Yes Discharge Data - Discharge Medication Prescriptions: Ferrous Sulfate [Feosol 325 mg Tablet] 325 mg PO BID #60 tablet Home Medications: Vit/Iron Fum/Folic AC [ Tablet] 1 tab PO DAILY 10/30/17 Ferrous Sulfate [Iron] 325 mg PO DAILY 11/26/17 Ferrous Sulfate [Feosol 325 mg Tablet] 325 mg PO BID #60 tablet 02/21/19 Gestational Age: 40 Reason(s) for Admission: Onset of Labor Procedures: Ultrasound Intrapartum Procedure(s): Spontaneous Vaginal Delivery - [place] Data Baby 1 Male at 1 minute: 7 at 5 minutes: 7 Weight: 3.856 kg Home with Mother: Yes Complications: No - Diagnosis Test Laboratory: Temp Pulse Resp BP Pulse Ox 97.7 F 73 15 114/60 100 02/21/19 10:16 02/21/19 10:16 02/21/19 10:16 02/21/19 10:16 02/21/19 10:16 02/20/19 02/20/19 02/21/19 03:20 05:32 11:38 RBC 3.31 L 2.74 L Hgb 8.4 L 6.8 L Hct 25.3 L 20.9 L Urine Opiates Screen NEGATIVE - Discharge information/Instructions Discharge Activity: Balance Activity w/Rest, Pelvic Rest, Slowly Increase Activity, No tub bath Discharge Diet: Regular Disposition: HOME, SELF-CARE Follow up with: [facility] in: 4, Weeks
== END 2019-02-21 13:39 | disposition home or self-care (01) | DRG 807 ==
LOC: LC 02:38 → LR 02:52 → 2S 08:15 → UNDODISIN 11:20
PROVIDERS: ADMIT Obstetrics & Gynecology; ATTEND Obstetrics & Gynecology
PROC: 10E0XZZ Delivery of Products of Conception, External Approach (ICD-10-PCS; principal; 2019-02-20)
PROC: 10907ZC Drainage of Amniotic Fluid, Therapeutic from Products of Conception, Via Natural or Artificial Opening (ICD-10-PCS; 2019-02-20)
PROC: 4A1HXCZ Monitoring of Products of Conception, Cardiac Rate, External Approach (ICD-10-PCS; 2019-02-20)
PROC: 3E0F73Z Introduction of Anti-inflammatory into Respiratory Tract, Via Natural or Artificial Opening (ICD-10-PCS; 2019-02-21)
DX: O62.3 Precipitate labor (principal); Z37.0 Single live birth; Z23 Encounter for immunization; Z88.6 Allergy status to analgesic agent; Z3A.40 40 weeks gestation of pregnancy
CPT/HCPCS: 36415; 80053; 80307; 81005; 85025; 85027; 86592; 86701; 86762; 86803; 86804; 86850; 86900; 86901; 87340; 88307; 90715; 94760; J2540; J2590; J3490; J7060